=== PATIENT | female | born 1930 | race Caucasian/White ===

== ENCOUNTER → 2016-10-07 | Outpatient (CLI) | payer MEDICARE, OTHER ==
[2016-10-07 12:45] LABS: BLOOD UREA NITROGEN 22 mg/dL (7-18)
[2016-10-07 12:51] LABS: ASPARTATE AMINO TRANSFERASE 20 U/L (15-37)
== END | disposition home or self-care (01) ==
LOC: CFH 09:25
PROVIDERS: ATTEND Internal Medicine Cardiovascular Disease
DX: E78.00 Pure hypercholesterolemia, unspecified (principal); I10 Essential (primary) hypertension
CPT/HCPCS: 36415; 80053; 80061; 83036

== ENCOUNTER → 2017-09-15 | Outpatient (CLI) | payer MEDICARE, OTHER ==
[2017-09-15 12:50] LABS: CHLORIDE 109 mmol/L (98-107)
[2017-09-15 13:00] LABS: ALANINE AMINOTRANSFERASE 34 U/L (12-78); ALBUMIN 3.6 g/dL (3.4-5.0); ALKALINE PHOSPHATASE 64 U/L (45-117); ANION GAP 7 mmol/L (5-15); BILIRUBIN,TOTAL 0.7 mg/dL (0.2-1.0); CALCIUM 8.8 mg/dL (8.5-10.1); CHOL/HDL RATIO 2.9; CHOLESTEROL, TOTAL 126 mg/dL (140-239); CREATININE 0.92 mg/dL (0.55-1.02); HDL CHOL % 35 % (28-40); HDL CHOLESTEROL (DIRECT) 44 mg/dL (40-60); HEMOGLOBIN A1C 5.7 % (4.2-6.3); LDL CHOLESTEROL,CALCULATED 63 mg/dL (54-169); LDL/HDL RATIO 1.4 (0.5-3.0); TOTAL PROTEIN 7.3 g/dL (6.4-8.2); TRIGLYCERIDES 96 mg/dL (50-200); VLDL CHOLESTEROL 19 mg/dL (0-25)
== END | disposition home or self-care (01) ==
LOC: CFH 10:25
PROVIDERS: ATTEND Internal Medicine Cardiovascular Disease
DX: E78.2 Mixed hyperlipidemia (principal); I10 Essential (primary) hypertension; Z95.5 Presence of coronary angioplasty implant and graft; R79.89 Other specified abnormal findings of blood chemistry
CPT/HCPCS: 36415; 80053; 80061; 83036

== ENCOUNTER → 2018-10-16 | Outpatient (CLI) | payer MEDICARE, OTHER ==
[2018-10-16 13:07] LABS: ALANINE AMINOTRANSFERASE 49 U/L (12-78); ALBUMIN 3.5 g/dL (3.4-5.0); ANION GAP 5 mmol/L (5-15); CALCIUM 8.8 mg/dL (8.5-10.1); CHLORIDE 107 mmol/L (98-107)
[2018-10-16 13:09] LABS: ALKALINE PHOSPHATASE 62 U/L (45-117); BILIRUBIN,TOTAL 0.7 mg/dL (0.2-1.0); CHOLESTEROL, TOTAL 138 mg/dL (140-239); CREATININE 0.86 mg/dL (0.55-1.02); HDL CHOL % 33 % (28-40); HDL CHOLESTEROL (DIRECT) 46 mg/dL (40-60); LDL CHOLESTEROL,CALCULATED 64 mg/dL (54-169); LDL/HDL RATIO 1.4 (0.5-3.0); TOTAL PROTEIN 6.9 g/dL (6.4-8.2); TRIGLYCERIDES 140 mg/dL (50-200); VLDL CHOLESTEROL 28 mg/dL (0-25)
== END | disposition home or self-care (01) ==
LOC: CFH 08:43
PROVIDERS: ATTEND Internal Medicine Cardiovascular Disease
DX: E78.2 Mixed hyperlipidemia (principal); I10 Essential (primary) hypertension
CPT/HCPCS: 36415; 80053; 80061

== ENCOUNTER → 2019-05-06 | Outpatient (CLI) | payer MEDICARE, OTHER | END | disposition home or self-care (01) | LOC: CFH 09:00 | PROVIDERS: ATTEND Internal Medicine Cardiovascular Disease | DX: I65.23 Occlusion and stenosis of bilateral carotid arteries (principal); E78.2 Mixed hyperlipidemia | CPT/HCPCS: 93880 ==

== ENCOUNTER → 2020-11-17 | Outpatient (CLI) | payer MEDICARE, OTHER | END | disposition home or self-care (01) | LOC: CVU 08:46 | PROVIDERS: ATTEND Internal Medicine Cardiovascular Disease | DX: I08.0 Rheumatic disorders of both mitral and aortic valves (principal); I25.10 Atherosclerotic heart disease of native coronary artery without angina pectoris; I11.9 Hypertensive heart disease without heart failure | CPT/HCPCS: 93306 ==